=== PATIENT | female | born 1945 | race Caucasian/White ===

== ENCOUNTER 2023-12-28 15:30 | Emergency (ER) | payer MEDICARE, OTHER, SELFPAY ==
[2023-12-28 15:35] VITALS: BP 171/82
--- NOTE | 2023-12-28 15:56 | ED.GENMED ---
History of Present Illness
General
Chief Complaint: Prescription Refill
Source: patient
Exam Limitations: none
Time Seen by Provider: 12/28/23 15:53
Nursing documentation reviewed up to this point in time: agreed with
History of Present Illness
History of Present Illness:
78-year-old female presenting to the emergency department today seeking a new prescription for citalopram. She has been taking this for multiple years. Her primary care doctor recently retired and she was unable to get a refill. She has a
scheduled appointment in 3 weeks with a new primary care doctor who was unwilling to refill this without seeing her in the office. She claims that she ran out a day and a half ago and is concerned of stopping cold turkey. Denies any significant
symptoms at this time.
Past History
Past History
ED Past Medical History: HTN, Hypercholesterolemia and Psychiatric (Anxiety)
ED Past Surgical History: Cardiac (Cardiac catheterization on 09/18/2020)
Patient has exhibited threatening behavior?: No
Social History
Tobacco: Former smoker (Quit when she was 51)
Alcohol: Daily (One 4-5 oz glass of wine per night)
Drug: None
Living: with family (Spouse)
Employment: Retired
Review of Systems
Review of Systems
Allergies reviewed?: Yes
All Other Systems: ROS reviewed and negative except as documented in HPI and ROS
Phy Exam
Physical Exam
Physical Exam:
GENERAL: Alert , in no apparent distress
EYE: pupils equal and reactive
NECK: Supple, no significant adenopathy.
ENT: o/p clr, mmm.
CARDIAC: Regular rate and rhythm .
LUNGS: Clear breath sounds bilaterally, no acute respiratory distress, no wheezes/rales/rhonchi
ABDOMEN: Soft, without focal tenderness, no r/g, no cvat
NEUROLOGICAL: Alert and oriented, no focal neuro deficits
SKIN: Warm and dry, skin intact.
MUSCULOSKELETAL: No edema, well perfused.
PSYCH: Normal and appropriate interaction.
Course
Vital Signs
Initial and Last Documented VS:
Initial Vital Signs
Temp Pulse Resp BP Pulse Ox
98.1 F 66 20 171/82 95
12/28/23 15:35 12/28/23 15:35 12/28/23 15:35 12/28/23 15:35 12/28/23 15:35
Last Documented Vital Signs
Temp Pulse Resp BP Pulse Ox
98.1 F 66 20 171/82 95
12/28/23 15:35 12/28/23 15:35 12/28/23 15:35 12/28/23 15:35 12/28/23 15:35
MDM/Problems Addressed
MDM/Problems Addressed:
78-year-old female presenting to the emergency department seeking refill of her citalopram. She has been stabilized on this for multiple years and only cannot refill this due to a abrupt senior living by her primary care doctor. She is otherwise
well-appearing in no distress. She is written for prescription that we will get her to her scheduled in 4 weeks. Return precautions given.
*Critical Care Note
Total Time (30-74mins, 75-104mins- exclusive of procedures): Not Applicable
ED Attending Note
-
Portions of this chart may have been created with voice recognition software.� Occasional wrong word or��sound alike� substitutions may have occurred due to the inherent limitations of voice recognition software.
Discharge Plan
Departure
Patient Disposition: Home (Routine Discharge)
Date of Disposition: 12/28/23
Time of Disposition: 15:57
Patient with high blood pressure during this ER visit?: No
Condition: Good
Covid-19: Not Applicable
Discharge Problem:
Encounter for medication refill
Instructions: Medicines for depression
Prescriptions:
New
citalopram 20 mg tablet
20 mg PO DAILY 30 Days Qty: 30 0RF
Activity Restrictions/Additional Instructions:
You came to the emergency department for medication refill. Please take as prescribed and follow-up closely with your primary care doctor for further assessment. Return to the emergency department for any worsening, new or concerning symptoms.
Interventions
Interventions:
*Risk Screen - Suicide Last Done: 12/28/23 15:35
*General Assessment Last Done: 12/28/23 15:35
*Neglect/Abuse Screening Last Done: 12/28/23 15:35
Discharge Date and Time
Print Language: AMHARIC
[2023-12-28 16:12] VITALS: BP 135/74
== END 2023-12-28 16:13 | disposition home or self-care (01) ==
LOC: EMR 15:30
PROVIDERS: EMERGENCY PHYSICIAN Emergency Medicine
DX: Z76.0 Encounter for issue of repeat prescription (principal); I10 Essential (primary) hypertension; E78.00 Pure hypercholesterolemia, unspecified; F41.9 Anxiety disorder, unspecified; Z87.891 Personal history of nicotine dependence
CPT/HCPCS: 99281

== ENCOUNTER → 2024-05-30 13:44 | Outpatient (REF) | payer MEDICARE, OTHER, SELFPAY | LOC: HWRAD 13:44 | PROVIDERS: ATTENDING PHYSICIAN Nurse Practitioner | DX: M85.89 Other specified disorders of bone density and structure, multiple sites (principal) | CPT/HCPCS: 77080 ==

== ENCOUNTER 2024-06-05 05:07 | Emergency (ER) | payer MEDICARE, OTHER, SELFPAY ==
[2024-06-05 05:11] VITALS: BP 130/54
[2024-06-05 05:20] VITALS: BMI 26.0
[2024-06-05 05:36] LABS: % Basophils 0.3 % (0-2); % Immature Granulocytes 0.3 % (0-0.5); % Lymphocytes 10.7 % (20.5-51.1); % Neutrophils 77.7 % (42.2-75.2); Absolute Lymphocytes 0.7 10^3/uL (1.2-3.4); Absolute Monocytes 0.7 10^3/uL (0.1-0.6); Absolute Neutrophils 4.7 10^3/uL (1.4-6.5); Hematocrit 38.6 % (37.0-47.0); Hemoglobin 13.5 g/dL (12.0-16.0); Mean Corpuscular Hgb 31.7 pg (27.0-31.0); Mean Corpuscular Volume 90.6 fL (81.0-99.0); Mean Platelet Volume 10.8 fL (7.4-10.4); Nucleated Red Blood Cells % 0 %; Platelet Count 157 10^3/uL (130-400); Red Blood Cell Count 4.26 10^6/uL (4.20-5.40); Red Cell Dist. Width 12.2 % (11.5-14.5); White Blood Cell Count 6.1 10^3/uL (4.8-10.8)
[2024-06-05 05:57] LABS: ALT (SGPT) 22 U/L (0-35); AST (SGOT) 26 U/L (14-36); Albumin 4.2 g/dl (3.5-5.0); Alkaline Phosphatase 87 U/L (38-126); Blood Urea Nitrogen 8 mg/dl (7-17); Calcium 8.9 mg/dl (8.4-10.2); Carbon Dioxide 22 mmol/L (22-30); Chloride 101 mmol/L (98-107); Estimated Creatinine Clearance 64 ml/min; Glucose 194 mg/dl (70-99); Potassium 3.8 mmol/L (3.5-5.1); Sodium 134 mmol/L (135-145); Total Bilirubin 1.2 mg/dl (0.2-1.3); Total Protein 6.7 g/dl (6.3-8.2); eGFR > 60.00
[2024-06-05 06:00] VITALS: BP 121/57
[2024-06-05 06:07] LABS: Troponin I 0.015 ng/ml
--- NOTE | 2024-06-05 06:56 | ED.GENMED ---
History of Present Illness
General
Chief Complaint: Fall
Source: patient and spouse
Exam Limitations: none
Time Seen by Provider: 06/05/24 06:47
History of Present Illness
History of Present Illness:
see MDM
Past History
Past History
ED Past Medical History: HTN, Hypercholesterolemia and Psychiatric (Anxiety)
ED Past Surgical History: Cardiac (Cardiac catheterization on 09/18/2020)
Patient has exhibited threatening behavior?: No
Social History
Tobacco: Former smoker (Quit when she was 51)
Alcohol: Daily (One 4-5 oz glass of wine per night)
Drug: None
Living: with family (Spouse)
Employment: Retired
Phy Exam
Physical Exam
Physical Exam:
See MDM
Course
Orders/Labs/Results
Orders:
Orders
06/05/24 05:19
EKG [Electrocardiogram (*1)] Urgent
Reason for Study: Syncope
EKG- Treatment ONCE
06/05/24 05:21
Complete Blood Count/With Diff Urgent
Comprehensive Metabolic Panel Urgent
Troponin I Urgent
06/05/24 06:54
CT Facial Bones W/o Iv Contras Urgent
Comment:
Reason For Exam: fall, nasal trauma
06/05/24 06:55
CT Cervical Spine W/o Iv Contr Urgent
Comment:
Reason For Exam: fall, neck pain
CT Head W/o Iv Contrast Urgent
Comment:
Reason For Exam: fall, head injury
0.9% Sodium Chloride 1000 ml [Nss] 1,000 ml IV BOLUS
Ketorolac [Toradol] 30 mg IV NOW STA
Ondansetron Injectable [Zofran] 4 mg IV NOW STA
06/05/24 06:57
Tetanus/Diphth/Acelpertussis [Adacel] 0.5 ml IM .ONCE ONE
06/05/24 07:59
Amoxicillin 875 mg/Clav 125 mg [Augmentin 875 mg/125 mg] 1 tablet PO NOW STA
Abnormal Lab Results
06/05/24
05:21
MCH 31.7 H pg
(27.0-31.0)
MPV 10.8 H fL
(7.4-10.4)
Absolute Lymphs (auto) 0.7 L 10^3/uL
(1.2-3.4)
Absolute Monos (auto) 0.7 H 10^3/uL
(0.1-0.6)
Neutrophils % 77.7 H %
(42.2-75.2)
Lymphocytes % 10.7 L %
(20.5-51.1)
Monocytes % 11.0 H %
(1.7-9.3)
Sodium 134 L mmol/L
(135-145)
Glucose 194 H mg/dl
(70-99)
06/05/24 05:21
06/05/24 05:21
Vital Signs
Initial and Last Documented VS:
Initial Vital Signs
Temp Pulse Resp BP Pulse Ox
97.8 F 90 20 130/54 96
06/05/24 05:11 06/05/24 05:11 06/05/24 05:11 06/05/24 05:11 06/05/24 05:11
Last Documented Vital Signs
Temp Pulse Resp BP Pulse Ox
97.8 F 95 20 121/57 94
06/05/24 05:11 06/05/24 06:00 06/05/24 06:00 06/05/24 06:00 06/05/24 06:00
MDM/Problems Addressed
Differential Diagnosis Includes:
HPI and MDM Narrative:
79-year-old female presenting for evaluation of syncope and facial trauma. Patient has been feeling sick recently and has been vomiting. She had a trash can by her bed and she did not have to go to bed. However, patient did get out of bed to go
to the bathroom. She started vomiting and her heard her fall. He noticed that she was on the floor on the carpet and she was bleeding
Patient found to have nasal trauma and abrasions to her face. She was placed in cervical collar by EMS. Patient cannot recollect the events. Blood work was done prior to my assessment showing no significant abnormalities. Blood sugar is mildly
elevated but this the reactive from the vomiting. Discussed having this followed up by PCP. EKG without arrhythmia. Discussed follow-up with PCP for further assessment of undiagnosed cardiac arrhythmia as well in the setting of syncope.
Given the facial trauma, will update tetanus and will obtain CT head, maxillofacial and cervical spine
Physical exam
General: Lying in bed comfortably
HEENT: protecting airway. Abrasion to bridge of nose. Dried blood noted in both nasal passage without evidence of septal hematoma
Neck: appears supple
CV: No evidence of cyanosis
Resp: No accessory muscle use
Abd: Non-distended
Extremities: No deformities. Mild tenderness to left lateral leg. No bony tenderness. No tenderness to deep venous palpation. No tenderness with logrolling
Neuro: alert
Psych: Normal affect
Skin: Multiple abrasions to face
Problems Addressed including Acute and Chronic Conditions affecting care:
1. Unwitnessed syncope
Acuity: acute
Prognosis: stable
Details: Likely vasovagal in the setting of GI blood and active vomiting. Will give IV fluids and continue to monitor on telemetry
2. Head injury
Acuity: acute
Prognosis: stable
Details: Will obtain tetanus shot and obtain CT head, neck and facial bones
Updates
CT head and neck negative. There is a depressed nasal bone fracture. Patient started on Augmentin. Discussed follow-up with PCP and ENT. Patient states she feels comfortable going home
Differential Diagnosis (but not limited to): Concussion, nasal fracture, cardiac arrhythmia, dehydration, vasovagal syncope
Testing considered: Left femur x-ray but there is no bony tenderness
Drug therapy (if applicable): OTC meds, please see d/c instruction regarding Rx drugs
Amount and/or Complexity of Data Reviewed
Clinical info obtained from: Patient
External data reviewed: N/A
Labs I independently reviewed (but not limited to): Hyperglycemia
Radiology: The CT scan was personally and independently reviewed. In addition, official CT report reviewed.
Pulse Ox: not hypoxic
EKG independently reviewed: Sinus rhythm, normal axis, no STEMI
Sales Marketing: Sinus rhythm
Critical Care: N/A
Risk of Complication:
Social Determinants of health: Good social support
Discussed with other providers: N/A
Escalation of Care includes Admit/Obs: After being observed in the Emergency Department, pt stable for discharge.
Occasional wrong word or 'sound a like' substitutions may have occurred due to the inherent limitations of voice recognition software. Read the chart carefully and recognize, using context, where substitutions have occurred.
*Critical Care Note
Total Time (30-74mins, 75-104mins- exclusive of procedures): Not Applicable
ED Attending Note
-
Portions of this chart may have been created with voice recognition software.� Occasional wrong word or��sound alike� substitutions may have occurred due to the inherent limitations of voice recognition software.
Discharge Plan
Departure
Patient Disposition: Home (Routine Discharge)
Date of Disposition: 06/05/24
Time of Disposition: 08:00
Patient with high blood pressure during this ER visit?: No
Discharge Problem:
Syncope, Fracture of nasal bone, Acute hyperglycemia
Instructions: Head Injury in Adults (DC)
Prescriptions:
New
amoxicillin-pot clavulanate 875-125 mg tablet
1 tab PO BID Qty: 14 0RF
Referrals:
Anthony Haile MD [Active] -
Isabella Marte CRNP [Family Provider] -
Activity Restrictions/Additional Instructions:
Please return for any worsening symptoms.
You may return at any time if you have further concerns.
Please follow up with your doctor at the first available appointment, preferably this week. Please have your symptoms reevaluated and your blood sugar reevaluated as well.
Please make an appointment to see the ear, nose and throat doctor (ENT) to further evaluate your broken nose.
Thank you for choosing [facility].
Interventions
Interventions:
*Risk Screen - Suicide Last Done: 06/05/24 05:11
*General Assessment Last Done: 06/05/24 05:11
*Neglect/Abuse Screening Last Done: 06/05/24 05:11
ED- Fall Risk Assessment Last Done: 06/05/24 07:29
*ED COVID-19 Vaccine History Last Done: 06/05/24 05:19
ED-Musculoskeletal Assessment Last Done: 06/05/24 07:29
ED- Neurological Assessment Last Done: 06/05/24 07:29
ED-Skin Assessment Last Done: 06/05/24 07:29
Discharge Date and Time
Print Language: ARMENIAN
[2024-06-05] MEDS: TORADOL 30 MG IV (07:11)
[2024-06-05] MEDS: ADACEL 0.5 ML IM (07:11)
[2024-06-05] MEDS: ZOFRAN 4 MG IV (07:12)
[2024-06-05] MEDS: NSS 1000 IV (07:13)
[2024-06-05 08:00] VITALS: BP 138/68
[2024-06-05] MEDS: AUGMENTIN 875 MG/125 MG 1 TABLET PO (08:29)
== END 2024-06-05 08:30 | disposition home or self-care (01) ==
LOC: EMR 05:07
PROVIDERS: Emergency Medicine; EMERGENCY PHYSICIAN Student in an Organized Health Care Education/Training Program; FAMILY PHYSICIAN Nurse Practitioner
DX: R55 Syncope and collapse (principal); S02.2XXA Fracture of nasal bones, initial encounter for closed fracture; R73.9 Hyperglycemia, unspecified; W19.XXXA Unspecified fall, initial encounter; Z23 Encounter for immunization; I10 Essential (primary) hypertension; E78.00 Pure hypercholesterolemia, unspecified; F41.9 Anxiety disorder, unspecified; Z87.891 Personal history of nicotine dependence
CPT/HCPCS: 99284; 96374; 96375; 96361; 90471; 70450; 70486; 72125; 80053; 84484; 85025; 90715; 93005

== ENCOUNTER → 2024-06-24 12:14 | Outpatient (REF) | payer MEDICARE, OTHER, SELFPAY | LOC: MRI 3T 12:14 | PROVIDERS: ATTENDING PHYSICIAN Physician Assistant Surgical; FAMILY PHYSICIAN Nurse Practitioner | DX: M25.562 Pain in left knee (principal) | CPT/HCPCS: 73721 ==